=== PATIENT | female | born 1995 | race Caucasian/White ===

== ENCOUNTER 2017-01-15 12:30 | Emergency (ER) | payer OTHER ==
[~2017-01-15] VITALS: Ht 149.9 cm; Wt 77.3 kg
[~2017-01-15 12:30] MED LIST: FEOSOL325 MG PO; FIORICET,ESG1 TABLET PO; FLEXERIL10 MG PO; Feosol PO; IBUPROFEN800 MG PO; INDOCIN25 MG PO; MEDROL DOSEPAK4 MG PO; MOBIC7.5 MG PO; MOTRIN600 MG PO; MOTRIN800 MG PO; Motrin PO; NAPROXEN500 MG PO; NATALCARE RX1 TABLE1 PO; ORTHO CYCLEN1 TABLET PO; Ortho Tri-Cyclen 28, PO; PEN-VEE K,VEET500 MG PO; PRENATAL TABLE1 EAC3 PO; SENOKOT S,PE1 TABLET PO; ULTRACET1 TABLET PO; VALIUM5 MG PO
[2017-01-15] MEDS ORDERED: VALIUM5 MG PO (15:05)
[2017-01-15] MEDS ORDERED: MOTRIN800 MG PO (15:05)
[2017-01-15] MEDS ORDERED: ULTRACET1 TABLET PO (15:05)
[2017-01-15 15:46] VITALS: BP 134/87
== END 2017-01-15 15:48 | disposition home or self-care (01) ==
LOC: EME 12:30
DX: M41.9 Scoliosis, unspecified (principal); M54.5 Low back pain; G89.29 Other chronic pain; R49.1 Aphonia
CPT/HCPCS: 99281; 99284

== ENCOUNTER 2018-06-25 22:52 | Emergency (ER) | payer OTHER ==
[~2018-06-25] VITALS: Ht 149.9 cm; Wt 84.3 kg
[2018-06-26] MEDS ORDERED: AMOXICILLIN875 MG PO (00:17)
[2018-06-26] MEDS ORDERED: TRAMADOL HCL50 MG PO (00:17)
[2018-06-26] MEDS ORDERED: MOTRIN600 MG PO (00:18)
[2018-06-26 00:21] VITALS: BP 116/84
== END 2018-06-26 00:33 | disposition home or self-care (01) ==
LOC: EME 22:52
DX: K08.89 Other specified disorders of teeth and supporting structures (principal); F32.9 Major depressive disorder, single episode, unspecified; F41.9 Anxiety disorder, unspecified; Z88.5 Allergy status to narcotic agent
CPT/HCPCS: 99281; 99283

== ENCOUNTER 2018-07-09 23:29 | Emergency (ER) | payer OTHER ==
[~2018-07-09] VITALS: Ht 152.4 cm; Wt 85.1 kg
[~2018-07-09 23:29] MED LIST changes: +AMOXICILLIN875 MG PO; +TRAMADOL HCL50 MG PO
[2018-07-09 23:33] VITALS: BP 119/90
[2018-07-10] MEDS ORDERED: NAPROSYN500 MG PO (00:18)
[2018-07-10] MEDS ORDERED: VALIUM5 MG PO (00:18)
[2018-07-10] MEDS ORDERED: ULTRACET1 TABLET PO (00:18)
== END 2018-07-10 00:49 | disposition home or self-care (01) ==
LOC: EME 23:29
DX: S39.012A Strain of muscle, fascia and tendon of lower back, initial encounter (principal); X50.0XXA Overexertion from strenuous movement or load, initial encounter; Y93.89 Activity, other specified; Y99.0 Civilian activity done for income or pay; M41.9 Scoliosis, unspecified; Z88.5 Allergy status to narcotic agent
CPT/HCPCS: 99281; 99283